=== PATIENT | male | born 1985 | race Two or more races ===

== ENCOUNTER 2017-04-11 16:24 | Emergency (ER) | payer OTHER ==
[2017-04-11 16:36] VITALS: PULSE 68; RESP 18; TEMP 99; O2SAT 98
[2017-04-11] MEDS ORDERED: LET GEL TOPICAL 1 EA SYR TP ONE (16:53)
[2017-04-11] MEDS ORDERED: TDAP ADULT 0.5 ML INJ (BOOSTRIX) IM ONE (16:56)
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
[2017-04-11 18:13] VITALS: BP 124/70
== END 2017-04-11 18:12 | disposition home or self-care (01) ==
DX: S06.0X0A Concussion without loss of consciousness, initial encounter (principal); S70.212A Abrasion, left hip, initial encounter; V18.0XXA Pedal cycle driver injured in noncollision transport accident in nontraffic accident, initial encounter; Y92.410 Unspecified street and highway as the place of occurrence of the external cause; Y99.8 Other external cause status; Y93.55 Activity, bike riding

== ENCOUNTER 2017-04-12 02:39 | Emergency (ER) | payer OTHER ==
[2017-04-12 02:53] VITALS: TEMP 98.1
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
[2017-04-12 04:51] VITALS: BP 112/71; PULSE 60; RESP 16; O2SAT 94
--- NOTE | 2017-04-12 05:48 | CPEKG ---
Heart Rate: 55 RR Interval: 1091 P-R Interval: 172 QRSD Interval: 96 QT Interval: 460 QTC Interval: 440 P Sayre: 58 QRS Sayre: 67 T Wave Sayre: 51 EKG Severity - ABNORMAL ECG - EKG Impression: SINUS RHYTHM EKG Impression: ST ELEV, PROBABLE NORMAL EARLY REPOL PATTERN Electronically Signed By: Ashley Herrera 12-Apr-2017 08:43:51
== END 2017-04-12 04:50 | disposition home or self-care (01) ==
DX: R55 Syncope and collapse (principal); S06.0X9A Concussion with loss of consciousness of unspecified duration, initial encounter; V19.20XA Unspecified pedal cyclist injured in collision with unspecified motor vehicles in nontraffic accident, initial encounter

== ENCOUNTER 2019-01-29 18:41 | Emergency (ER) | payer OTHER | END 2019-01-29 21:00 | disposition home or self-care (01) ==